=== PATIENT | female | born 1995 | race Two or more races ===

== ENCOUNTER 2018-05-15 01:54 | Inpatient (IN) | payer OTHER ==
[2018-05-15 02:34] LABS: APPEARANCE,URINE CLEAR; BILIRUBIN,URINE NEGATIVE (NEGATIVE); COLOR,URINE STRAW; GLUCOSE, URINE 50 mg/dL (NEGATIVE); KETONES,URINE NEGATIVE (NEGATIVE); LEUKOCYTE ESTERASE,URINE NEGATIVE (NEGATIVE); NITRITE,URINE NEGATIVE (NEGATIVE); PROTEIN,URINE NEGATIVE (NEGATIVE); URINE SPECIFIC GRAVITY 1.006; UROBILINOGEN,URINE NEGATIVE mg/dL (<2.0)
[2018-05-15 02:40] LABS: AMNISURE (ROM) NEGATIVE (NEGATIVE)
[2018-05-15 02:59] LABS: URINE AMPHETAMINES SCREEN NEGATIVE; URINE BARBITURATES SCREEN NEGATIVE; URINE BENZODIAZEPINES SCREEN NEGATIVE; URINE COCAINE SCREEN NEGATIVE; URINE MARIJUANA (THC) SCREEN NEGATIVE; URINE METHADONE SCREEN NEGATIVE; URINE PHENCYCLIDINE SCREEN NEGATIVE
[2018-05-15] MEDS: RINGERS SOLUTION,LACTATED 1,000 ML IV PRN ×2 (04:36→06:49)
[2018-05-15 05:16] LABS: ABSOLUTE BASOPHILS # (AUTO) 0.1 10^3/uL (0.0-0.2); ABSOLUTE LYMPHOCYTES (AUTO) 2.3 10^3/uL (0.5-4.7); ABSOLUTE MONOCYTES (AUTO) 0.7 10^3/uL (0.1-1.4); ABSOLUTE NEUT (AUTO) 7.9 10^3/uL (1.7-8.2); BASOPHILS % (AUTO) 0.5 % (0-2); EOSINOPHILS % (AUTO) 0.4 % (0-6); HEMATOCRIT 31.6 % (36.0-47.0); HEMOGLOBIN 10.7 g/dL (12.0-15.5); LYMPHOCYTES % (AUTO) 20.8 % (13-45); MEAN CORPUSCULAR HEMOGLOBIN 29.3 pg (27.0-33.4); MEAN CORPUSCULAR HGB CONC 33.9 g/dL (32.0-36.0); MEAN CORPUSCULAR VOLUME 87 fl (80-97); PLATELET COUNT 312 10^3/uL (150-450); RED BLOOD COUNT 3.65 10^6/uL (3.72-5.28); RED CELL DISTRIBUTION WIDTH 14.2 % (11.5-14.0); SEGMENTED NEUTROPHILS % (AUTO) 72.3 % (42-78); TOTAL CELLS COUNTED % (AUTO) 100 %
[2018-05-15] MEDS ORDERED: BUPIVACAINE HCL 0.25 % INJ/PF (2.5 MG/1 ML) 30 ML VIAL ONE (06:29)
[2018-05-15] MEDS ORDERED: EPHEDRINE SULFATE INJ 50 MG/1 ML AMPULE ONE (06:29)
[2018-05-15] MEDS ORDERED: FENTANYL/BUPIVACAINE/NS/PF 300 MCG/150 ML RTUINJ EPI ONE (06:29)
[2018-05-15 06:47] LABS: RUBELLA INTERPRETATION POSITIVE
--- NOTE | 2018-05-15 06:51 | Admission Physical ---
Datetime Report Generated by CPN: 05/15/2018 06:51 CURRENT ADMISSION Chief Complaint: Uterine Contractions Indication for Induction: Not Applicable Admit Impression : Term, Intrauterine ; Active Labor Admit Plan: Admit to Unit; Initiate Labor Protocol ALLERGIES Medication Allergies: Yes Medication Allergies: amoxicillin (05/15/2018) Latex: No Latex Allergies OBSTETRICAL HISTORY EDC: 05/16/2018 00:00 : 2 Para: 1 Term: 1 Gestational Diabetes: No Rh Sensitization: No Incompetent Cervix: No AMARJIT: No Infertility: No ART Treatment: No Uterine Anomaly: No IUGR: No Hx Previous C/S: No Macrosomia: No Hx Loss/Stillborn: No PIH: No Hx : No Placenta Previa/Abruption: No Depression/PP Depression: No PTL/PROM: No Post Hemorrhage: No Current Procedures: Ultrasound SEE RECORDS Alcohol: No Marijuana : No Cocaine: No Other Illicit Drugs: No Cigarettes: Never Smoker. [id number] MEDICAL HISTORY Diabetes: No Blood Transfusion: No Pulmonary Disease (Asthma, TB): No Breast Disease: No Hypertension: No Aquatic Director Surgery: No Heart Disease: No Hosp/Surgery: No Autoimmune Disorder: No Anesthetic Complications: No Kidney Disease: No Abnormal Pap Smear: No Neuro/Epilepsy: No Psychiatric Disorders: No Other Medical Diseases: No Hepatitis/Liver Disease: No Significant Family History: No Varicosities/Phlebitis: No Trauma/Violence : No Thyroid Dysfunction: No INFECTIOUS HISTORY Gonorrhea: No Genital Herpes: No Chlamydia: No Tuberculosis: No Syphilis: No Hepatitis: No HIV/AIDS Exposure: No Rash or Viral Illness: No HPV: No PHYSICAL EXAM General: Deferred HEENT: Normal Neurologic: Normal Thyroid: Deferred Heart: Normal Lungs: Normal Breast: Deferred Back: Normal Abdomen: Normal Genitourinary Exam: Normal Extremities: Normal DTRs: Normal Pelvic Type: Adequate Vital Signs: Reviewed VAGINAL EXAM Dilatation: 4 Effacement: 90 Station: -2 Contraction Comments: q 2-4 MEMBRANES Membranes: Intact FETUS A EGA: 39.6 Monitoring: External US FHR- Baseline: 155 Variability: Moderate 6-25bpm Accelerations: 15X15 Decelerations: None FHR Category: Category I Presentation: Vertex Admit Comment: 22yo at 39+6ega presents with regular uterine ctx. Lapse in care from at 16wks to 29wks then transfer of care at 29wks. GBS negative. Pelvis proven to 6#. Failed 1hr GTT then passed 3 hr GTT. Admit to Labor and delivery and anticipate . PLANS FOR LABOR AND DELIVERY Labor and Delivery: None Pain Management: Epidural Feeding Preference: Formula Benefit of Breast Feed Discussed: Yes Circumcision: N/A INFORMED CONSENT Informed Consent Obtained: Vaginal Delivery; Risks, Benefits and Alternatives Discussed Signature: with User ID: [email or web address]
[2018-05-15] MEDS ORDERED: OXYTOCIN/NORMAL SALINE 20 UNIT/1,000 ML RTUINJ ONE (07:21)
[2018-05-15] MEDS ORDERED: MISOPROSTOL 0.2 MG TABLET ONE (07:21)
[2018-05-15] MEDS ORDERED: LIDOCAINE 1% INJ-PF (10 MG/ML) 30 ML SDV ONE (07:21)
[2018-05-15] MEDS ORDERED: DIPHENHYDRAMINE HCL 25 MG CAPSULE PO PRN (10:31)
[2018-05-15] MEDS ORDERED: DIBUCAINE 1% OINTMENT 28 GM TP PRN (10:31)
[2018-05-15] MEDS ORDERED: MAGNESIUM HYDROXIDE SUSP 30 ML UDCUP PO PRN (10:31)
[2018-05-15] MEDS ORDERED: PROMETHAZINE HCL 25 MG TABLET PO PRN (10:31)
[2018-05-15] MEDS ORDERED: PSEUDOEPHEDRINE HCL 30 MG TABLET PO PRN (10:31)
[2018-05-15] MEDS ORDERED: ACETAMINOPHEN 650 MG SUPP.RECT PR PRN (10:31)
[2018-05-15] MEDS ORDERED: ZOLPIDEM TARTRATE 5 MG TABLET PO PRN (10:31)
[2018-05-15] MEDS ORDERED: NA PHOS,M-B/NA PHOS,DI-BA (ADULT) 133 ML ENEMA PR PRN (10:31)
[2018-05-15] MEDS ORDERED: HYDROCODONE/ACETAMINOPHEN 5-325 MG TABLET PO PRN (10:31)
[2018-05-15] MEDS ORDERED: DIPH/PERTUSS(ACELL)/TETANUS VAC/PF 0.5 ML SYR (>=10YO) IM PRN (10:31)
[2018-05-15] MEDS ORDERED: METHYLERGONOVINE MALEATE INJ/PF 0.2 MG/1 ML AMPULE IM PRN (10:31)
[2018-05-15] MEDS ORDERED: GLYCERIN/WITCH HAZEL LEAF 1 EACH MED..PAD TP PRN (10:31)
[2018-05-15] MEDS ORDERED: MEASLES,MUMPS&RUBELLA VACC/PF 0.5 ML VIAL SUBCUT PRN (10:31)
[2018-05-15] MEDS ORDERED: OXYTOCIN/NORMAL SALINE 20 UNIT/1,000 ML RTUINJ IV PRN (10:31)
[2018-05-15] MEDS ORDERED: ACETAMINOPHEN WITH CODEINE #3 TABLET PO PRN ×2 (10:31)
[2018-05-15] MEDS ORDERED: PROMETHAZINE HCL INJ 25 MG/1 ML VIAL IV PRN (10:31)
[2018-05-15] MEDS ORDERED: PROMETHAZINE HCL 25 MG SUPP.RECT PR PRN (10:31)
[2018-05-15] MEDS ORDERED: BENZOCAINE/MENTHOL AEROSOL SPRAY 56 ML TOP PRN (10:31)
[2018-05-15] MEDS ORDERED: METHYLERGONOVINE MALEATE INJ/PF 0.2 MG/1 ML AMPULE ONE (10:39)
[2018-05-15] MEDS ORDERED: KETOROLAC TROMETHAMINE INJ/PF 30 MG/1 ML SDV ONE (10:39)
[2018-05-15 10:57] LABS: ARTERIAL BLOOD BASE EXCESS -7.4 mmol/L; ARTERIAL BLOOD HCO3 21.5 mmol/L (20-26); ARTERIAL BLOOD O2 SATURATION 39.9 % (94-98); ARTERIAL BLOOD PCO2 56.5 mmHg (35-45); ARTERIAL BLOOD TOTAL CO2 23.3 mmol/L (21-25)
[2018-05-15 10:59] LABS: ARTERIAL BLOOD FIO2 CORD BLOOD
--- NOTE | 2018-05-15 11:09 | PDOC DELIVERY SUMMARY ---
Delivery Summary - Maternal Hx : II Hx Para: I Hx # Term Pregnancies: 1 Hx # Pregnancies: 0 Hx Total # of Abortions (Sponateous & Elective): 0 Number of Living Children: 1 TANJA: 05/16/18 Gestational Age: 39.6 Risk Factors/Complications Other:: none Ruptured Membranes: AROM Time of Rupture: 08:36 Fluids: Clear - moderate amount - Delivery Labor: Augmentation Presentation: Vertex Heart Rate Monitoring: Externally Uterine Contraction Monitoring: External Pattern: Variable Decels Support Person Present: No Location: LD Placenta: Within Normal Limits Placenta Description: normal appearing in size Number of Vessels (Cord): 3 Nuchal Cord: Yes - nuchal cord x 1 Delivery of Placenta Date: 05/15/18 Delivery of Placenta Time: 10:08 Estimated Blood Loss: 300 Delivery Quantitative Blood Loss (QBL): 300 - Medications Type of Anesthesia:: Epidural - Delivery Medications Delivery Meds: Methergine 0.2mg IM Delivery Meds Comment: uterine atony
--- NOTE | 2018-05-15 12:32 | Delivery Summary ---
Del Sum A-C Datetime Report Generated by CPN: 05/15/2018 12:32 DELIVERY PERSONNEL DELIVERY PERSONNEL: [id number] Delivery Doctor:: Siobhan Cortes MD Labor and Delivery Nurse:: Gerardo Araujo RNassociate professor of theatre Nurse:: Ellen Rocha RN Operations Executive/MANAGER PIPELINE: Elizabeth Gagnona, ST Operations Executive/MANAGER PIPELINE: Larisa Darbyignacio, SWINGING CUT OFF SAW OPERATOR MATERNAL INFORMATION Delivery Anesthesia: Epidural Medications After Delivery: Pitocin Bolus-Please Comment Meds After Delivery Comment: Pitocin 20 units in 1000mL NS Maternal Complications: None LABOR SUMMARY EDC: 05/16/2018 00:00 No. Babies in Womb: 1 Attempted: No Labor Anesthesia: Epidural LABOR INFORMATION Reason for Induction: Not Applicable Onset of Labor: 05/15/2018 04:25 Complete Dilatation: 05/15/2018 09:30 Oxytocin: N/A Group B Beta Strep: NEGATIVE Antibiotics # of Doses: 0 Steroids Given: None Reason Steroids Not Administered: Not Applicable MEMBRANES Membranes Rupture Method: Artificial Rupture of Membranes: 05/15/2018 08:36 Length of Rupture (hr): 1.45 Amniotic Fluid Color: Clear Amniotic Fluid Amount: Small Amniotic Fluid Odor: Normal STAGES OF LABOR Stage 1 hr: 5 Stage 1 min: 5 Stage 2 hr: 0 Stage 2 min: 33 Stage 3 hr: 0 Stage 3 min: 5 Total Time in Labor hr: 5 Total Time in Labor min: 43 VAGINAL DELIVERY Episiotomy: None Laceration #1: None Laceration Extension #1: N/A Laceration #2: None Laceration Extension #2: N/A Laceration #3: None Laceration Extension #3: N/A Laceration Repair: Not Applicable Sponge Count Correct: Vaginal Sweep Performed Sharps Count Correct: Yes CSECTION DELIVERY Primary Indication: N/A Secondary Indication: N/A CSection Incidence: N/A Labor: N/A Elective: N/A CSection Incision: N/A BABY A INFORMATION Infant Delivery Date/Time: 05/15/2018 10:03 Method of Delivery: Vaginal Born in Route : No : N/A Forceps: N/A Vacuum Extraction: N/A Shoulder Dystocia : No PRESENTATION/POSITION BABY A Presentation: Cephalic Cephalic Presentation: Vertex Vertex Position: Right Occipital Anterior Breech Presentation: N/A PLACENTA INFORMATION BABY A Placenta Delivery Time : 05/15/2018 10:08 Placenta Method of Delivery: Spontaneous Placenta Status: Delivered SCORES BABY A Heart Rate 1 min: >100 bpm Resp Effort 1 min: Good Cry Reflex Irritability 1 min: Cough or Sneeze or Pulls Away Muscle Tone 1 min: Active Motion Color 1 min: Blue/Pale Resuscitation Effort 1 min: Tactile Stimulation SCORE 1 MIN: 8 Heart Rate 5 min: >100 bpm Resp Effort 5 min: Good Cry Reflex Irritability 5 min: Cough or Sneeze or Pulls Away Muscle Tone 5 min: Active Motion Color 5 min: Body [place], Extremities Blue SCORE 5 MIN: 9 INFANT INFORMATION BABY A Gestational Age at Delivery: 39.6 Gestational Status: Full Term- 39- 40.6 Weeks Infant Outcome : Liveborn Infant Condition : Stable Infant Sex: Female IDENTIFICATION BABY A Infant Verification Date/Time: 05/15/2018 10:31 ID Band Number: [id number] Mother's Name Verified: Yes Infant RN Verifying Infant: Roger Rocha, RN and Sander Araujo, RN WEIGHT/LENGTH BABY A Infant Birthweight (gm): 3360 Infant Weight (lb): 7 Weight (oz): 7 Length (in): 20.00 Length (cm): 50.80 CORD INFORMATION BABY A No. Cord Vessels: 3 Nuchal Cord : N/A Cord Blood Taken: Yes-For Storage (Mom's Blood type +) Suction: Mouth; Nose ASSESSMENT BABY A Infant Complications: None Physical Findings at Delivery: Within Normal Limits Respirations: Appears Normal Skin to Skin: Yes Dispatcher Ship Pilot/ALS Called : No Transferred To: Nursery SIGNATURES Signature: with User ID: [email or web address]
[2018-05-15] MEDS: IBUPROFEN 800 MG TABLET PO SCH ×2 (14:20→21:14)
[2018-05-15] MEDS: FERROUS SULFATE 325 MG TABLET PO SCH (17:13)
[2018-05-15] MEDS: DOCUSATE SODIUM 100 MG CAPSULE PO SCH (17:13)
[2018-05-15] MEDS: FAMOTIDINE 20 MG TABLET PO SCH (21:14)
[2018-05-16] MEDS: IBUPROFEN 800 MG TABLET PO SCH ×3 (05:15→21:59)
[2018-05-16 07:38] LABS: HEPATITIS C VIRUS AB <0.1 s/co ratio (0.0-0.9)
[2018-05-16 07:59] LABS: HEMATOCRIT 22.3 % (36.0-47.0); MEAN CORPUSCULAR HEMOGLOBIN 29.5 pg (27.0-33.4); MEAN CORPUSCULAR HGB CONC 33.5 g/dL (32.0-36.0); MEAN CORPUSCULAR VOLUME 88 fl (80-97); PLATELET COUNT 234 10^3/uL (150-450); RED BLOOD COUNT 2.53 10^6/uL (3.72-5.28); RED CELL DISTRIBUTION WIDTH 14.8 % (11.5-14.0); WHITE BLOOD COUNT 8.8 10^3/uL (4.0-10.5)
[2018-05-16 08:01] LABS: HEMOGLOBIN 7.5 g/dL (12.0-15.5)
[2018-05-16 08:32] LABS: HEPATITS B SURFACE ANTIGEN Negative (Negative)
--- NOTE | 2018-05-16 09:07 | PDOC PROGRESS REPORT ---
Subjective-OB Progress Note for:: 05/16/18 Subjective: reports bleeding slowing, pain controlled with current meds, denies needs. denies SALMERON/dizziness/SOB/near syncope/extreme fatigue, encouraged to notify nurse if she experiences any of these sx. Physical Exam (OB) Vital Signs: Temp Pulse Resp BP Pulse Ox 98.1 F 63 16 105/46 L 99 05/16/18 07:18 05/16/18 07:18 05/16/18 07:18 05/16/18 07:18 05/16/18 07:18 Intake & Output 05/15/18 05/16/18 05/17/18 06:59 06:59 06:59 Intake Total 277 1350 Balance 277 1350 Weight 61.3 kg - Abdomen Description: Soft, Round Hernia Present: No Fundal Description: Firm, Midline Fundal Height: u/u - u/2 - Abdominal Inspection: Normal Tenderness: Nontender - Extremities Lower extremities: Nadia's sign - neg Calf: Normal, Nontender Objective-Diagnostic Laboratory: 05/16/18 06:57 05/15/18 05/16/18 10:06 06:57 WBC 8.8 RBC 2.53 L Hgb 7.5 L D Hct 22.3 L MCV 88 MCH 29.5 MCHC 33.5 RDW 14.8 H Plt Count 234 Carbonic Acid 1.70 H HCO3/H2CO3 Ratio 12:1 ABG pH 7.20 L* ABG pCO2 56.5 H ABG pO2 28.0 L* ABG HCO3 21.5 ABG O2 Saturation 39.9 L ABG Base Excess -7.4 FiO2 CORD BLOOD Assessment and Plan(PN) - Assessment and Plan (1) Vaginal delivery Is this a current diagnosis for this admission?: Yes (2) Anemia associated with acute blood loss Is this a current diagnosis for this admission?: Yes (3) Active labor at term Is this a current diagnosis for this admission?: Yes - Time Spent with Patient Time with patient: Less than 15 minutes Medications reviewed and adjusted accordingly: Yes - Disposition Anticipated Discharge: Home Within: within 24 hours
[2018-05-16] MEDS: SENNOSIDES/DOCUSATE 8.6-50 MG 1 EACH TABLET PO SCH (09:08)
[2018-05-16] MEDS: PRENATAL VITAMIN W DHA CAPSULE PO SCH (09:08)
[2018-05-16] MEDS: FAMOTIDINE 20 MG TABLET PO SCH ×2 (09:08→21:59)
[2018-05-16] MEDS: DOCUSATE SODIUM 100 MG CAPSULE PO SCH ×2 (09:08→17:20)
[2018-05-16] MEDS: FERROUS SULFATE 325 MG TABLET PO SCH ×2 (09:08→17:21)
[2018-05-16] MEDS ORDERED: (PENDING PHARMACY ID) (Prenatal Vit Calc,Iron,Folic [Prenatal Vitamins] 1 TAB) PO SCH (10:00)
[2018-05-17 06:27] LABS: ABSOLUTE EOSINOPHILS # (AUTO) 0.1 10^3/uL (0.0-0.6); ABSOLUTE MONOCYTES (AUTO) 0.4 10^3/uL (0.1-1.4); ABSOLUTE NEUT (AUTO) 5.1 10^3/uL (1.7-8.2); BASOPHILS % (AUTO) 0.1 % (0-2); EOSINOPHILS % (AUTO) 0.8 % (0-6); HEMATOCRIT 22.9 % (36.0-47.0); LYMPHOCYTES % (AUTO) 26.5 % (13-45); MEAN CORPUSCULAR HEMOGLOBIN 29.4 pg (27.0-33.4); MEAN CORPUSCULAR HGB CONC 33.1 g/dL (32.0-36.0); MEAN CORPUSCULAR VOLUME 89 fl (80-97); MONOCYTES % (AUTO) 5.8 % (3-13); PLATELET COUNT 227 10^3/uL (150-450); RED BLOOD COUNT 2.58 10^6/uL (3.72-5.28); RED CELL DISTRIBUTION WIDTH 14.4 % (11.5-14.0); SEGMENTED NEUTROPHILS % (AUTO) 66.8 % (42-78); TOTAL CELLS COUNTED % (AUTO) 100 %; WHITE BLOOD COUNT 7.7 10^3/uL (4.0-10.5)
[2018-05-17] MEDS: IBUPROFEN 800 MG TABLET PO SCH (06:53)
[2018-05-17 06:56] LABS: HEMOGLOBIN 7.6 g/dL (12.0-15.5)
--- NOTE | 2018-05-17 09:27 | PDOC DISCHARGE SUMMARY ---
Final Diagnosis Discharge Date: 05/17/18 - Final Diagnosis (1) Vaginal delivery Is this a current diagnosis for this admission?: Yes (2) Anemia associated with acute blood loss Is this a current diagnosis for this admission?: Yes (3) Active labor at term Is this a current diagnosis for this admission?: Yes Discharge Data - Discharge Medication Prescriptions: Ibuprofen [Motrin 800 mg Tablet] 800 mg PO Q8HP PRN #60 tablet PRN Reason: Abdominal Cramping Docusate Sodium [Colace 100 mg Capsule] 100 mg PO BID #60 capsule Ferrous Sulfate [Feosol 325 mg Tablet] 325 mg PO TID #120 tablet Home Medications: Vit Calc,Iron,Folic [ Vitamins] 1 tab PO DAILY 05/15/18 Docusate Sodium [Colace 100 mg Capsule] 100 mg PO BID #60 capsule 05/17/18 Ferrous Sulfate [Feosol 325 mg Tablet] 325 mg PO TID #120 tablet 05/17/18 Ibuprofen [Motrin 800 mg Tablet] 800 mg PO Q8HP PRN #60 tablet 05/17/18 Reason(s) for Admission: Onset of Labor Procedures: Ultrasound Intrapartum Procedure(s): Spontaneous Vaginal Delivery - Diagnosis Test Laboratory: Temp Pulse Resp BP Pulse Ox 98.6 F 71 15 110/65 100 05/17/18 07:48 05/17/18 07:48 05/17/18 07:48 05/17/18 07:48 05/17/18 07:48 05/15/18 05/15/18 05/16/18 02:00 04:54 06:57 RBC 3.65 L 2.53 L Hgb 10.7 L 7.5 L D Hct 31.6 L 22.3 L Urine Opiates Screen NEGATIVE 05/17/18 06:07 RBC 2.58 L Hgb 7.6 L Hct 22.9 L Urine Opiates Screen - Discharge information/Instructions Discharge Activity: Activity As Tolerated, Balance Activity w/Rest, No Lifting Over 10 Pounds, Pelvic Rest, No tub bath, Walk Frequently Discharge Diet: Regular Disposition: HOME, SELF-CARE Follow up with: [facility] in: 4, Weeks
[2018-05-17 09:58] VITALS: BP 104/56
[2018-05-17] MEDS: SENNOSIDES/DOCUSATE 8.6-50 MG 1 EACH TABLET PO SCH (10:38)
[2018-05-17] MEDS: FERROUS SULFATE 325 MG TABLET PO SCH (10:38)
[2018-05-17] MEDS: DOCUSATE SODIUM 100 MG CAPSULE PO SCH (10:38)
[2018-05-17] MEDS: PRENATAL VITAMIN W DHA CAPSULE PO SCH (10:38)
[2018-05-17] MEDS: FAMOTIDINE 20 MG TABLET PO SCH (10:38)
== END 2018-05-17 12:55 | disposition home or self-care (01) | DRG 775 ==
LOC: LC 01:54 → LR 04:34 → 2N 12:45
PROVIDERS: ADMIT Student in an Organized Health Care Education/Training Program; ATTEND Student in an Organized Health Care Education/Training Program
PROC: 10E0XZZ Delivery of Products of Conception, External Approach (ICD-10-PCS; principal; 2018-05-15)
PROC: 4A1HXCZ Monitoring of Products of Conception, Cardiac Rate, External Approach (ICD-10-PCS; 2018-05-15)
DX: O69.81X0 Labor and delivery complicated by cord around neck, without compression, not applicable or unspecified (principal); D62 Acute posthemorrhagic anemia; O99.02 Anemia complicating childbirth; Z3A.39 39 weeks gestation of pregnancy; Z37.0 Single live birth
CPT/HCPCS: 36415; 80307; 81005; 82803; 84112; 85025; 85027; 86592; 86762; 86803; 86804; 86850; 86900; 86901; 87340; 94760; J1885; J2210; J2590; J3010; J3490